=== PATIENT | female | born 1945 | race Two or more races ===

== ENCOUNTER 2017-10-15 10:45 | Inpatient (IN) | payer OTHER ==
[~2017-10-15] VITALS: Ht 162.6 cm; Wt 72.6 kg
[~2017-10-15 10:45] MED LIST: ADULT ASPIRIN81 MG; ALTACE10 MG PO; ALTACE5 MG; CRESTOR5 MG; PANADOL EXTRA500 MG
[2017-10-15] MEDS ORDERED: ROSUVASTATIN CAL5 MG PO (11:53)
[2017-10-15] MEDS ORDERED: ASA81 MG PO (11:53)
== END 2017-10-19 18:12 | disposition home or self-care (01) | DRG 741 ==
LOC: EDSTATUS 10:45 → ADM 10:45 → SURH 10-18 07:00 → OB/GYN 10-18 07:04 → O/R 10-18 07:04 → SURH 10-18 10:45 → OB/GYN 10-18 15:27
PROVIDERS: Obstetrics & Gynecology Gynecologic Oncology
PROC: 0UT24ZZ Resection of Bilateral Ovaries, Percutaneous Endoscopic Approach (ICD-10-PCS; 2017-10-18)
PROC: 0UT74ZZ Resection of Bilateral Fallopian Tubes, Percutaneous Endoscopic Approach (ICD-10-PCS; 2017-10-18)
PROC: 07BC4ZX Excision of Pelvis Lymphatic, Percutaneous Endoscopic Approach, Diagnostic (ICD-10-PCS; 2017-10-18)
PROC: 0UT94ZZ Resection of Uterus, Percutaneous Endoscopic Approach (ICD-10-PCS; principal; 2017-10-18 07:00)
DX: C54.1 Malignant neoplasm of endometrium (principal)

== ENCOUNTER 2019-10-20 08:40 | Outpatient (CLI) | payer OTHER ==
[~2019-10-20 08:40] MED LIST changes: +ASA81 MG PO; +ROSUVASTATIN CAL5 MG PO
== END 2019-10-20 08:44 | disposition home or self-care (01) ==
LOC: SONOGRAMA 08:40
DX: E04.1 Nontoxic single thyroid nodule (principal)